=== PATIENT | male | born 1970 | race Caucasian/White ===

== ENCOUNTER 2020-05-30 16:28 | Emergency (ER) | payer BC, SELFPAY ==
[2020-05-30 16:36] VITALS: BP 167/92; PULSE 90; RESP 18; TEMP 36.4; O2SAT 98
--- NOTE | 2020-05-30 16:49 | ED.GENADULT ---
HPI - General Adult General Chief complaint: Wound/Laceration Stated complaint: Pos spider bite Time Seen by Provider: 05/30/20 16:49 Source: patient Mode of arrival: ambulatory Limitations: no limitations History of Present Illness HPI narrative: 50-year-old male patient presents to the [facility] with complaints of a bite/wound to the left ankle for the last couple of days. Patient denies any pain to the area denies any itching. Patient states it was slightly swollen yesterday but does appear to be better today. Denies any chest pain, shortness of breath denies any fevers. Patient states he has had a brown recluse bite before the past and just wanted to come and get it checked out. Related Data Allergies Allergy/AdvReac Type Severity Reaction Status Date / Time No Known Allergies Allergy Verified 05/30/20 16:38 Review of Systems Review of Systems: Narrative: CONSTITUTIONAL: Denies fever, chills, or sweats. EYES: Denies visual changes, redness, or discharge. ENT: Denies rhinorrhea, congestion, sore throat, or otalgia. CARDIOVASCULAR: Denies chest pain, palpitations, or edema. RESPIRATORY: Denies cough or dyspnea. GASTROINTESTINAL: Denies abdominal pain, nausea, vomiting, or diarrhea. GENITOURINARY: Denies dysuria or hematuria. SKIN: Denies rash or itching. Positive bite to left ankle MUSCULOSKELETAL: Denies back pain, joint pain, or myalgia. NEUROLOGIC: Denies headache, numbness, or weakness. PSYCHIATRIC: Denies anxiety or depression. PMFSH Family History Family History Sibling Depression Family history of multiple sclerosis Father Hypertension Family history of coronary artery disease Mother Hypertension Family history of coronary artery disease Social History Social History Smoking status: Never smoker Alcohol intake: current Gender identity (if verbalized by the patient): Male Comments At the time of my signature I agree with nursing past medical history, surgical, social, and family history. There is no relevant family history pertinent to the presenting complaint. Exam Narrative: Exam Narrative: GENERAL: Well-appearing, well-nourished, and in no acute distress. HEAD: Normocephalic, atraumatic. EYES: PERRLA and EOMI. ENT: Nares clear, no rhinorrhea or epistaxis. Mucous membranes moist. NECK: Supple. No lymphadenopathy CHEST: Clear to auscultation. No respiratory distress. HEART: Regular rate and rhythm. No murmur heard. Normal peripheral pulses. ABDOMEN: Soft, nontender, nondistended, normal active bowel sounds. EXTREMITIES: Normal range of motion. No edema. SKIN: Warm, dry, no rash. Patient has what appears to be 2 fang campo to the inner aspect of the left ankle. Slight redness noted but no warmth. No discharge noted. No obvious swelling noted at this time. No tenderness to the touch. NEURO: No focal deficits. Alert and oriented x3. Course Vital Signs Vital signs: Vital Signs Temperature 36.4 C L 05/30/20 16:36 Pulse Rate 90 05/30/20 16:36 Respiratory Rate 18 05/30/20 16:36 Blood Pressure 167/92 H 05/30/20 16:36 Pulse Oximetry 98 05/30/20 16:36 Temperature 36.4 C L 05/30/20 16:36 Pulse Rate 90 05/30/20 16:36 Respiratory Rate 18 05/30/20 16:36 Blood Pressure 167/92 H 05/30/20 16:36 Pulse Oximetry 98 05/30/20 16:36 Vital signs reviewed. The patient has been informed that they may have pre-hypertension or Hypertension based on a BP reading in the department. I recommend that the patient call the primary care provider listed on their discharge instructions or a physician of their choice this week to arrange follow up for further evaluation of possible pre-hypertension or Hypertension Medical Decision Making Differential Diagnosis Differential Diagnosis: Differential diagnosis: Abscess, cellulitis, hidradenitis, laceration, puncture wound, insect
== END 2020-05-30 16:55 | disposition home or self-care (01) ==
PROVIDERS: Emergency Provider Nurse Practitioner Family
DX: S80.862A Insect bite (nonvenomous), left lower leg, initial encounter (principal); W57.XXXA Bitten or stung by nonvenomous insect and other nonvenomous arthropods, initial encounter
CPT/HCPCS: 99203; G0463

== ENCOUNTER 2021-01-15 16:27 | Emergency (ER) | payer BC, SELFPAY ==
--- NOTE | ~2021-01-15 | XR_ITS ---
EXAMINATION: XR chest 2V DATE: 01/15/2021 17:08 INDICATION: Bilateral leg swelling. TECHNIQUE: Frontal and lateral views of the chest were obtained. COMPARISON: None. FINDINGS: The chest demonstrates clear lungs without pneumonia, pleural effusion, or pneumothorax. Th e heart size is normal. IMPRESSION: 1. No acute cardiopulmonary disease. Reviewed, dictated and finalized at location A. [employer]
[2021-01-15 16:33] VITALS: BP 174/102; PULSE 87; RESP 20; TEMP 36.6; O2SAT 100
--- NOTE | 2021-01-15 16:41 | ED.GENADULT ---
HPI - General Adult General Chief complaint: Extremity Problem,Nontraumatic Stated complaint: BILAT FEET SWELLING Time Seen by Provider: 01/15/21 16:41 Source: patient and RN notes reviewed Mode of arrival: ambulatory Limitations: no limitations History of Present Illness HPI narrative: 50-year-old male presents with complaints of swelling to bilateral lower extremities for the past 5 months. Nicole reports he has been having swelling to BLEs since July, increasing over the last 24 hours due to increase sitting and up on feet. No treatment. Denies poor circulation, chronic BLE swelling, DVT, PE, or long car rides. No known injury. No radiation of pain. No numbness or tingling, drainage, or bleeding. No loss of mobility. Exacerbating factor consist of prolong standing and dangling legs. Denies fatigue, numbness or tingling in the extremities, dizziness, headache, blurred vision, or other vision disturbance. History of elevated blood readings. Denies URI symptoms. Denies dysuria or hematuria. Denies polyuria, polydipsia, nocturia, recent weight loss, rapid heart beat, dizziness, lightheadedness, and alter mental status. Denies fever or chills. Denies nausea, vomiting, and abdominal pain. Tolerating po intake well. Denies chest pain or shortness of breath. Remains active. The patient reports he have not been diagnosed with COVID-19. The patient reports he is not waiting for the results of a COVID-19 lab test. The patient reports he do not have chills, or weakness. The patient reports he do not have a new or worsening cough or shortness of breath. The patient reports he do not have any rhinorrhea, congestion, loss of taste or smell, sore throat, and diarrhea. Denies recent traveling. Denies concerns for COVID-19 or exposures been home with limited outdoor exposure except for essential household needs, work, and return home. At this time, patient is not suspected of having COVID-19. Some parts of this dictation were generated by voice recognition software and may contain typographical and/or grammatical inaccuracies. Related Data Allergies Allergy/AdvReac Type Severity Reaction Status Date / Time No Known Allergies Allergy Verified 01/15/21 16:31 Review of Systems Review of Systems: Narrative: CONSTITUTIONAL: Denies fever, chills, sweats. EYES: Denies visual changes, redness, discharge. ENT: Denies rhinorrhea, congestion, sore throat, otalgia. CARDIOVASCULAR: Denies chest pain, palpitations. Complains of swelling to BLEs. RESPIRATORY: Denies dyspnea, wheezing, cough. GASTROINTESTINAL: Denies abdominal pain, nausea, vomiting, or diarrhea. GENITOURINARY: Denies dysuria, hematuria, abnormal discharge. SKIN: Denies rash or itching. MUSCULOSKELETAL: Denies acute back pain, joint pain, or myalgia. NEUROLOGIC: Denies numbness or focal weakness. PSYCHIATRIC: Denies anxiety or depression. All systems reviewed & are unremarkable except as noted in HPI and below. [facility] Past Medical History Medical History (Updated 01/16/21 @ 00:01 by Seth Bai) Appendicitis Elevated blood pressure reading Obese Surgical History Surgical History (Updated 01/15/21 @ 17:06 by RENATO Huerta) Hx of appendectomy Family History Family History (Updated 01/15/21 @ 17:08 by RENATO Huerta) Sibling Depression Family history of multiple sclerosis Father Hypertension Family history of coronary artery disease Mother Hypertension Family history of coronary artery disease COPD (chronic obstructive pulmonary disease) Social History Social History (Updated 01/15/21 @ 17:08 by RENATO Huerta) Smoking status: Never smoker Tobacco type: cigarettes Second hand tobacco smoke exposure: No Alcohol intake: current Substance use: never Living arrangements: with family Occupation/Education: occupation Gender identity (if verbalized by the patient): Male Sexual Orientation (if Verbali
--- NOTE | 2021-01-15 16:59 | ECG_ITS ---
Measurements Intervals [place] Rate: 82 P: 43 ID: [id number] QRS: -25 QRSD: 112 T: 28 QT: 380 QTc: 445 Interpretive Statements SINUS RHYTHM INTRAVENTRICULAR CONDUCTION DELAY BORDERLINE ECG Electronically Signed On 01-16-2021 7:17:24 [employer]PAR[employer] by Marcos Soriano D.O.
[2021-01-15 17:05] VITALS: BP 134/76
== END 2021-01-15 17:35 | disposition home or self-care (01) ==
PROVIDERS: Emergency Provider Nurse Practitioner Family; PCP Family Medicine
DX: M79.89 Other specified soft tissue disorders (principal); R60.0 Localized edema; R03.0 Elevated blood-pressure reading, without diagnosis of hypertension; E66.9 Obesity, unspecified; Z68.41 Body mass index [BMI] 40.0-44.9, adult
CPT/HCPCS: 71046; 93005; 99213; G0463

== ENCOUNTER 2023-03-11 19:37 | Emergency (ER) | payer BC, SELFPAY ==
--- NOTE | 2023-03-11 19:42 | ED.URI ---
HPI - URI/Sore Throat General Chief Complaint: Upper Respiratory Infection Stated Complaint: cough Time Seen by Provider: 03/11/23 19:42 Source: patient and RN notes reviewed Mode of arrival: ambulatory Limitations: no limitations History of Present Illness HPI Narrative: 53-year-old male presents with concern for cough for 5 weeks. Reports symptoms started when he was at a swim meet and felt like the air made him cough. He reports since then he has had a persistent dry cough. He denies fever, aches, chills, sweats. Denies shortness of breath. He denies rhinorrhea or nasal congestion. He has not taken any medications for his symptoms. He reports the cough does not keep him awake at night, however he coughs persistently during the day MD elicited complaint: cough Related Data Allergies Allergy/AdvReac Type Severity Reaction Status Date / Time No Known Allergies Allergy Verified 03/11/23 19:42 Review of Systems Review of Systems: CONSTITUTIONAL: Denies malaise, chills, sweats, or fever. EYES: Denies visual changes, redness, or discharge. ENT: Denies rhinorrhea, congestion, sinus pain, otalgia and sore throat. CARDIOVASCULAR: Denies chest pain, palpitations, or edema. RESPIRATORY: Reports cough. Denies dyspnea. GASTROINTESTINAL: Denies abdominal pain, nausea, vomiting, diarrhea SKIN: Denies rash or itching. MUSCULOSKELETAL: Denies myalgia. NEUROLOGIC: Denies headache. All systems reviewed & are unremarkable except as noted in HPI and below PMFSH Past Medical History Medical History (Updated 03/11/23 @ 19:49 by Kendal Bose NP) Appendicitis Elevated blood pressure reading Obese Surgical History Surgical History (Updated 01/15/21 @ 17:06 by RENATO Huerta) Hx of appendectomy Family History Family History (Updated 01/15/21 @ 17:08 by RENATO Huerta) Sibling Depression Family history of multiple sclerosis Father Hypertension Family history of coronary artery disease Mother Hypertension Family history of coronary artery disease COPD (chronic obstructive pulmonary disease) Social History Social History (Updated 01/15/21 @ 17:08 by RENATO Huerta) Smoking status: Never smoker Tobacco type: cigarettes Second hand tobacco smoke exposure: No Alcohol intake: current Substance use: never Living arrangements: with family Occupation/Education: occupation Gender identity (if verbalized by the patient): Male Sexual Orientation (if Verbalized by the Patient): Straight or Heterosexual Comments At time of signature, agree with nursing past medical, surgical, social and family history. There is no relevant family history pertinent to the presenting complaint Exam Narrative: GENERAL: Well-appearing, well-nourished, and in no acute distress. HEAD: Normocephalic EYES: PERRLA, conjunctivae clear ENT: Nares clear, turbinates edematous and erythematous, clear discharge. Mucous membranes moist. TM pearly raya with sharp light reflex bilaterally; no tragal tenderness. Oropharynx not erythematous without lesions. Tonsils not enlarged and without exudate, no drooling, no hoarseness, no trismus, uvula midline. NECK: Supple. No lymphadenopathy CHEST: Clear to auscultation, breath sounds equal. No wheezing, rhonchi, rales, or stridor. No respiratory distress, speaks in full sentences. HEART: Regular rate and rhythm. No murmur heard. SKIN: Warm, dry, no rash. NEURO: Alert and oriented x3. PSYCH: Normal mood and affect Course Course Emergency Course: Patient is aware of diagnosis, understands and agrees to treatment plan. Anticipatory guidance given. Patient agrees to follow-up as directed and is aware of reasons to seek care at the emergency department. Portions of this record may have been created with voice recognition software Level of Care: Express Care Visit Vital Signs Vital signs: Reviewed. MDM - URI/Sore Throat MDM Narrative Medical decision making narr
[2023-03-11 19:44] VITALS: BP 174/94; PULSE 91; RESP 16; TEMP 36.8; O2SAT 98
== END 2023-03-11 19:52 | disposition home or self-care (01) ==
PROVIDERS: Emergency Provider Nurse Practitioner
DX: J40 Bronchitis, not specified as acute or chronic (principal); E66.9 Obesity, unspecified; Z68.41 Body mass index [BMI] 40.0-44.9, adult
CPT/HCPCS: 99213; G0463

== ENCOUNTER 2024-05-12 12:51 | Outpatient (CLI) | payer BC, SELFPAY ==
--- NOTE | ~2024-05-12 | XR_ITS ---
EXAMINATION: XR knee LT min 4V, XR knee RT min 4V DATE: 05/12/2024 13:06 INDICATION: Chronic bilateral knee pain TECHNIQUE: 1. Weight bearing anteroposterior and Gannon, sunrise, and flexed lateral views of the right knee were obtained. 2. Weight bearing anteroposterior and Gannon, sunrise, and flexed lateral views of the left knee w ere obtained. COMPARISON: None. FINDINGS: Alignment is normal. No fracture. There is moderate joint space at the patellofemoral compartment of the right knee and mild to moderate joint space narrowing at the patellofemoral compartment of the l eft knee, both with small marginal osteophytes. Joint spaces in the medial and lateral compartments a re normal. No joint effusion. Soft tissues are unremarkable. IMPRESSION: 1. Bilateral patellofemoral osteoarthritis with moderate joint space narrowing on the right and mild to moderate on the left. Reviewed, dictated and finalized at location B. IMPRESSION: 1. Bilateral patellofemoral osteoarthritis with moderate joint space narrowing on the right and mild to moderate on the left.
== END 2024-05-12 12:52 ==
LOC: GOSHIMG 12:52
PROVIDERS: PCP Emergency Medicine; Visit Provider Emergency Medicine
DX: M17.0 Bilateral primary osteoarthritis of knee (principal)
CPT/HCPCS: 73564

== ENCOUNTER 2024-06-25 10:10 | Outpatient (CLI) | payer BC, SELFPAY ==
--- NOTE | ~2024-06-25 | MR_ITS ---
MRI of the left knee Clinical history: Medial meniscus tear Technique: Coronal proton density and proton density-weighted images, sagittal proton-density and T2 fat-sat images, and axial proton-density fat-saturated images were acquired. Findings: Anterior and posterior cruciate ligaments are intact. Medial collateral ligament and the la teral collateral ligament complex are intact. Popliteus tendon is intact. No lateral meniscal tear seen. There is a horizontal/oblique tear of the posterior horn and body of t he medial meniscus. There is an associated elongated, crescentic parameniscal cyst medially measuring 3.3 cm in craniocaudal extent, 3.3 cm in AP diameter, and 0.6 cm in transverse dimension. There is mild chondromalacia the femoral trochlea. Remaining articular cartilage is well preserved. B one marrow signals are unremarkable. Extensor mechanism is intact. No joint effusion or Jones's cyst. Impression: Horizontal/oblique tear of the posterior horn and body medial meniscus, with 3.3 x 3.3 x 0.6 cm eccen tric medial para-meniscal cyst. Reviewed, dictated and finalized at location . Impression: Horizontal/oblique tear of the posterior horn and body medial meniscus, with 3. 3 x 3.3 x 0.6 cm eccentric medial para-meniscal cyst.
== END 2024-06-25 10:11 ==
LOC: GOSHIMG 10:11
PROVIDERS: PCP Emergency Medicine; Visit Provider Orthopaedic Surgery
DX: S83.242A Other tear of medial meniscus, current injury, left knee, initial encounter (principal); X58.XXXA Exposure to other specified factors, initial encounter
CPT/HCPCS: 73721

== ENCOUNTER 2024-07-03 08:32 | Outpatient (CLI) | payer BC, SELFPAY ==
--- NOTE | 2024-07-03 08:30 | ECG_ITS ---
Test Date: 2024-07-03 09:03:54 Measurements Intervals [place] Rate: 75 P: 26 ID: [id number] QRS: -9 QRSD: 116 T: 17 QT: 373 QTc: 418 Interpretive Statements SINUS RHYTHM NORMAL ELECTROCARDIOGRAM No previous ECG available for comparison Electronically Signed On 07-03-2024 15:05:49 CDT by Michael Beckwith M.D.
== END 2024-07-03 08:33 | disposition home or self-care (01) ==
PROVIDERS: PCP Emergency Medicine; Visit Provider Orthopaedic Surgery
DX: Z01.810 Encounter for preprocedural cardiovascular examination (principal); S83.242A Other tear of medial meniscus, current injury, left knee, initial encounter
CPT/HCPCS: 93005

== ENCOUNTER 2024-07-06 01:27 | Day surgery (SDC) | payer BC, SELFPAY ==
[2024-07-01 15:08] VITALS: BMI 41.5
--- NOTE | 2024-07-01 15:21 | SUR.PREOP ---
Report to the Outpatient Waiting Room, entrance under the green pavilion located off [facility], at time 1300 on date 07/06/24. Planned Procedure Time: 1500. Time changes happen often and if your time is changed the preop area will call you the afternoon before. - You and your visitor will be asked to self-screen and do not enter if you have any COVID symptoms. - A mask is optional within the hospital at this time. Patients may have clear liquids (water, carbonated beverages, clear teas, apple juice) until 3 hours prior to surgery with a maximum of 20 ounces. - No food from midnight until time of surgery Take the following medications with a SIP of water the morning of surgery: N/A DO NOT STOP ANY OF YOUR OTHER PRESCRIPTION MEDICATIONS PRIOR TO SURGERY ?EXCEPT THE FOLLOWING Medications to discontinue per physician TIRZEPATIDE Date take last dose PT STATED THAT HIS LAST DOSE WAS June AND WONT TAKE AGAIN UNTIL AFTER PROCEDURE Please no make-up, nail kazakh, hairspray, perfume, deodorant, or body powder the day of surgery. No jewelry (including any body piercings) or valuables the day of surgery, leave them at home. Please take a shower or bath the night before, or the morning of, surgery with an antibacterial soap. Wear comfortable, loose fitting clothing. Children are encouraged to wear pajamas. - Jewelry must be removed prior to entering the operating room. Rings and piercings that are not removed may be cut off. - The hospital will not accept responsibility for valuables. - Please leave all valuables, including medications, at home the day of surgery. If you are going home after surgery, a licensed driver recruiter must drive you home. - NO public transportation without another adult if you receive anesthesia. - We recommend that an adult stay with you for 24 hours following discharge. - We also recommend that you do not drive, make important decision, drink alcoholic beverages, or take any drugs that were not prescribed by your health care provider for at least 24 hours after your discharge time. Follow any additional instructions given to you from your surgeon. If you or anyone in your household have experienced Covid symptoms in the past week, please notify your surgeon or the nurse liaison at the phone number below for possible testing. Telephone instructions given to ANTOLIN MERRILL and asked if any additional questions and then verbalized understanding. Patient advised to call surgeon office or pre surgery nurse liaison [phone] if any additional questions.
[2024-07-06] VITALS (8 sets, daily range): BP systolic 105–134; BP diastolic 70–78; PULSE 59–78; RESP 12–18; TEMP 36–36.2; O2SAT 97–100
[2024-07-06] MEDS: ACETAMINOPHEN 500 MG TABLET 1000 MG PO (13:15)
[2024-07-06] MEDS: LACTATED RINGERS 1,000 ML 30 ML IV CONT (13:30)
--- NOTE | 2024-07-06 13:54 | WPDANESEPPF ---
Anes - Initial Pre Proc Eval Procedure: Operation Date: 07/06/24 15:00 Proposed Procedures p Left Knee Arthroscopy, Partial Medial Meniscectomy - Julio Hunter MD Date/Time: 07/06/24 13:54 Surgeon: Julio Hunter MD Pre Op Diagnosis: left knee medial meniscus tear Patient Data Age: 54 Gender: M Height: 1.85 m Weight: 145.5 kg Last Vital Signs Temp 36.0 C L 07/06/24 13:16 Pulse 78 07/06/24 13:16 Resp 16 07/06/24 13:16 BP 134/77 07/06/24 13:16 Pulse Ox 98 07/06/24 13:16 O2 Del Method Room Air 07/06/24 13:16 Allergies Allergy/AdvReac Type Severity Reaction Status Date / Time semaglutide [From [facility]] AdvReac Severe Vomiting Verified 07/06/24 13:06 Home Medications Medication Instructions Recorded Confirmed Type lisinopril 10 mg tablet 10 mg PO DAILY #90 tabs 10/28/23 07/01/24 Rx tirzepatide (weight loss) 5 mg/0.5 5 mg (0.5 mL) subcut WEEKLY #2 mL 06/12/24 07/01/24 Rx mL subcutaneous pen injector (Zepbound) Patient hx anesthesia problems: none Family hx anesthesia problems: none Results Review: All pre-operative results and documents have been reviewed as part of the pre-operative evaluation. [facility] Past Medical History Medical History (Updated 07/06/24 @ 13:55 by Eyad Johnson DO) Appendicitis Elevated blood pressure reading Hyperlipidemia Hypertension Obese KATARZYNA (obstructive sleep apnea) Surgical History Surgical History Hx of appendectomy Family History Family History Sibling Depression Family history of multiple sclerosis Father Hypertension Family history of coronary artery disease Mother Hypertension Family history of coronary artery disease COPD (chronic obstructive pulmonary disease) Social History Social History (Updated 06/17/24 @ 09:17 by Charo Fontaine CMA) Smoking status: Never smoker Tobacco type: cigarettes Second hand tobacco smoke exposure: No Alcohol intake: current Substance use: never Do You Feel Safe in your Home?: Yes Lack of Transportation: No Lack of Food: Never True Current Housing: I Have Housing Concerned About Future Housing: No Difficulty Paying Gas/Electric Bills: No Difficulty Paying for Meds: No Currently Unemployed: No Education: Bachelor's Degree Difficulty w/ Childcare or Family Care: No Living arrangements: with family Occupation/Education: occupation Gender identity (if verbalized by the patient): Male Sexual Orientation (if Verbalized by the Patient): Straight or Heterosexual Spiritual care concerns: No Anes - Eval Final PreProcedure Day of Procedure 07/06/24 13:54 Patient weight: morbidly obese Heart: regular rate and rhythm Lungs: clear to auscultation Airway: Mallampati scale class II Neurological: alert and oriented Last oral intake: >/= 8 hours ASA classification: III Emergent: no Anesthetic plan: proceed Anesthesia type and monitoring: general LMA and standard monitoring Results Review: All pre-operative results and documents have been reviewed as part of the pre-operative evaluation. Informed Consent: The patient's anesthetic plan and its attendant risks and benefits were discussed with the patient/family/POA. Questions were solicited and answers provided to the satisfaction of the patient/family/POA.
[2024-07-06] MEDS: KETOROLAC 15 MG/ML VIAL (*BKC) IV PUSH (14:17)
--- NOTE | 2024-07-06 14:24 | WPDHPUPDATE1 ---
History and Physical Update Update Date/Time: 07/06/24 14:24 History and Physical has been reviewed, including an updated exam of the patient. There are NO changes in the patient's condition. Risks, benefits, and alternatives have been discussed and questions answered. Patient agrees to proceed with procedure.
[2024-07-06] MEDS: ceFAZolin 3 GM/D5W 100 ML 100 ML IVPB (14:31)
[2024-07-06] MEDS: BUPIVACAINE/EPINEPHRINE 0.5% 50 ML VIAL 20 ML INFILTRATE (15:18)
--- NOTE | 2024-07-06 16:09 | W.PM.PROC2 ---
Procedure Note - Detailed Date of Procedure 07/06/24 Pre-op Diagnosis Left knee medial meniscus tear Post-op Diagnosis Same Procedure Performed Arthroscopic partial medial meniscectomy, left knee. Surgeon Julio Hunter MD Anesthesia General Findings Extensive medial tear posterior horn. Subtotal meniscectomy. Some frayed tissue anteriorly also debrided. The lateral compartment appeared benign but the patellofemoral joint showed significant early arthritis. Medial femur chondromalacia grade 2/3, medial tibia grade 1. Lateral femur chondromalacia grade 0, lateral tibia grade 0. Patellar grade 2, trochlea grade 3. Description of Procedure The patient was identified and the surgical site confirmed and signed in the preoperative holding area. Antibiotics were started per protocol, and the patient was brought to the operative room and transferred to the OR table. A general anesthetic was administered. Supine position with the operative lower extremity position in the leg fr[place] after placement of a well padded tourniquet. The leg support was lowered and the contralateral limb was supported with a soft bolster. The knee was prepped and draped in the usual sterile fashion. A time-out was performed. The portal sites were marked and infiltrated with 0.5% Marcaine 20 mL. The limb was exsanguinated and the tourniquet inflated to 300 mL Hg. Standard inferolateral and inferomedial portals were established. Inflow was obtained with the saline pump. The camera was introduced. Diagnostic inspection of the joint was accomplished. The meniscus was debrided with the arthroscopic shaver and punches until stable. The radiofrequency probe was also used for further d?bridement. The arthroscopic instruments were removed. The tourniquet released and wounds closed with subcutaneous 4-0 Monocryl absorbable suture. Steri strips and a sterile dressing were applied. A light elastic wrap was placed. The patient was extubated and brought to the recovery room in stable condition. Estimated Blood Loss 5 Drains No Complications No immediate complications Condition Stable Disposition PACU [facility] Billing Surgery - Charge Forward: Surgery Billing
== END 2024-07-06 17:27 | disposition home or self-care (01) ==
PROVIDERS: PCP Emergency Medicine; Visit Provider Orthopaedic Surgery
PROC: (CPT 29870; principal; 2024-07-06 15:00)
DX: S83.242A Other tear of medial meniscus, current injury, left knee, initial encounter (principal); M17.0 Bilateral primary osteoarthritis of knee; I10 Essential (primary) hypertension; E78.5 Hyperlipidemia, unspecified; G47.33 Obstructive sleep apnea (adult) (pediatric); E66.01 Morbid (severe) obesity due to excess calories; Z68.41 Body mass index [BMI] 40.0-44.9, adult; Z79.85 Long-term (current) use of injectable non-insulin antidiabetic drugs; Z98.890 Other specified postprocedural states; Z82.49 Family history of ischemic heart disease and other diseases of the circulatory system; W10.9XXA Fall (on) (from) unspecified stairs and steps, initial encounter
CPT/HCPCS: 29881; A9270; J0690; J1100; J1885; J2250; J2405; J2704; J3010; J7120

== ENCOUNTER 2024-08-04 02:35 | Day surgery (SDC) | payer BC, SELFPAY ==
[2024-07-13 10:16] VITALS: BMI 42.3
[2024-08-04 08:55] VITALS: BP 136/94; PULSE 85; RESP 16; TEMP 36.7; O2SAT 98; BMI 41.5
[2024-08-04] MEDS: LACTATED RINGERS 1,000 ML 150 ML IV CONT (09:14)
--- NOTE | 2024-08-04 09:49 | PM.IMHP ---
H&P: HPI History of Present Illness Date/Time: 08/04/24 09:49 Chief Complaint: Screening for colorectal cancer Narrative: this is a 54-year-old man who presents for colonoscopy. He has never had a colonoscopy before. He denies any hematochezia or melena. He does occasionally have some bright red blood after bowel movements that he thinks is related to hemorrhoids. He denies family history of colon cancer. Review of Systems Review of Systems: All systems reviewed & are unremarkable except as noted in HPI and below Constitutional: Constitutional: Denies chills, Denies fever(s), Denies headache(s) and Denies weight loss Eyes: Eyes: Denies change in vision ENT: Denies dizziness, Denies headache(s), Denies neck mass and Denies throat swelling Cardiovascular: Cardiovascular: Denies chest pain, Denies lightheadedness and Denies dyspnea Respiratory: Respiratory: Denies cough, Denies dyspnea and Denies wheezing Gastrointestinal: Gastrointestinal: Denies abdominal pain, Denies change in bowel habits, Denies nausea and Denies vomiting Genitourinary: Genitourinary: Denies hematuria and Denies dysuria Musculoskeletal: Musculoskeletal: Reports as per HPI Integumentary/Breasts: Skin/Breast: Reports as per HPI Neurologic: Denies dizziness and Denies headache(s) Allergic/Immunologic: Allergic/Immunologic: Denies throat swelling and Denies wheezing PMFSH Past Medical History Medical History Appendicitis Elevated blood pressure reading Hyperlipidemia Hypertension Obese KATARZYNA (obstructive sleep apnea) Surgical History Surgical History Hx of appendectomy Family History Family History Sibling Depression Family history of multiple sclerosis Father Hypertension Family history of coronary artery disease Mother Hypertension Family history of coronary artery disease COPD (chronic obstructive pulmonary disease) Social History Social History Smoking status: Never smoker Second hand tobacco smoke exposure: No Alcohol intake: never Substance use: never Substance use type: does not use Do You Feel Safe in your Home?: Yes Lack of Transportation: No Lack of Food: Never True Current Housing: I Have Housing Concerned About Future Housing: No Difficulty Paying Gas/Electric Bills: No Difficulty Paying for Meds: No Currently Unemployed: No Education: Bachelor's Degree Difficulty w/ Childcare or Family Care: No Living arrangements: with family Occupation/Education: occupation Gender identity (if verbalized by the patient): Male Sexual Orientation (if Verbalized by the Patient): Straight or Heterosexual Spiritual care concerns: No Meds Home Medications and Allergies Home Medications Medication Instructions Recorded Confirmed Type lisinopril 10 mg tablet 10 mg PO DAILY #90 tabs 10/28/23 08/04/24 Rx tirzepatide (weight loss) 5 mg/0.5 5 mg (0.5 mL) subcut WEEKLY #2 mL 06/12/24 08/04/24 Rx mL subcutaneous pen injector ([employer]) hydrocodone 5 mg-acetaminophen 325 1 - 2 tablet PO Q4-6H PRN pain #14 07/22/24 08/04/24 Rx mg tablet tabs Allergies Allergy/AdvReac Type Severity Reaction Status Date / Time semaglutide [From Gilbertmelissa] AdvReac Severe Vomiting Verified 08/04/24 09:05 Vital Signs Vital Signs - 24 hr 08/04/24 08:55 Temperature 98.1 F Pulse Rate 85 Respiratory Rate 16 Blood Pressure 136/94 H Pulse Oximetry 98 Oxygen Delivery Room Air Exam Const: General: no acute distress and alert Orientation/consciousness: patient oriented x3 HENMT: Head: normocephalic and atraumatic Ears: hearing grossly normal bilaterally Face/Nose/Sinus: Normal nares present Mouth: Yes Normal oral and palatal mucosa present Eyes: Periorbit
--- NOTE | 2024-08-04 09:50 | P.PNAN_ITS ---
Anes - Initial Pre Proc Eval Procedure: Operation Date: 08/04/24 09:30 Proposed Procedures p Screening Colonoscopy - Vitor Jackson DO Date/Time: 08/04/24 09:50 Surgeon: Vitor Jackson DO Pre Op Diagnosis: Neoplasm screening Patient Data Age: 54 Gender: M Height: 1.85 m Weight: 143 kg Last Vital Signs Temp 36.7 C 08/04/24 08:55 Pulse 85 08/04/24 08:55 Resp 16 08/04/24 08:55 BP 136/94 H 08/04/24 08:55 Pulse Ox 98 08/04/24 08:55 O2 Del Method Room Air 08/04/24 08:55 Allergies Allergy/AdvReac Type Severity Reaction Status Date / Time semaglutide [From Nader] AdvReac Severe Vomiting Verified 08/04/24 09:05 Home Medications Medication Instructions Recorded Confirmed Type lisinopril 10 mg tablet 10 mg PO DAILY #90 tabs 10/28/23 08/04/24 Rx tirzepatide (weight loss) 5 mg/0.5 5 mg (0.5 mL) subcut WEEKLY #2 mL 06/12/24 08/04/24 Rx mL subcutaneous pen injector (Zepbound) hydrocodone 5 mg-acetaminophen 325 1 - 2 tablet PO Q4-6H PRN pain #14 07/22/24 08/04/24 Rx mg tablet tabs Patient hx anesthesia problems: none Family hx anesthesia problems: none Results Review: All pre-operative results and documents have been reviewed as part of the pre- operative evaluation. COUNT INCLUDES [facility] Past Medical History Medical History Appendicitis Elevated blood pressure reading Hyperlipidemia Hypertension Obese KATARZYNA (obstructive sleep apnea) Surgical History Surgical History Hx of appendectomy Family History Family History Sibling Depression Family history of multiple sclerosis Father Hypertension Family history of coronary artery disease Mother Hypertension Family history of coronary artery disease COPD (chronic obstructive pulmonary disease) Social History Social History Smoking status: Never smoker Second hand tobacco smoke exposure: No Alcohol intake: never Substance use: never Substance use type: does not use Do You Feel Safe in your Home?: Yes Lack of Transportation: No Lack of Food: Never True Current Housing: I Have Housing Concerned About Future Housing: No Difficulty Paying Gas/Electric Bills: No Difficulty Paying for Meds: No Currently Unemployed: No Education: Bachelor's Degree Difficulty w/ Childcare or Family Care: No Living arrangements: with family Occupation/Education: occupation Gender identity (if verbalized by the patient): Male Sexual Orientation (if Verbalized by the Patient): Straight or Heterosexual Spiritual care concerns: No Comments MED HX: KATARZYNA, HTN, HLD, M.OBESE Anes - Eval Final PreProcedure Day of Procedure 08/04/24 09:50 Results Review: All pre-operative results and documents have been reviewed as part of the pre- operative evaluation. Informed Consent: The patient's anesthetic plan and its attendant risks and benefits were discussed with the patient/family/POA. Questions were solicited and answers provided to the satisfaction of the patient/famil
[2024-08-04 10:28] VITALS: BP 109/73; PULSE 70; RESP 17; O2SAT 96
[2024-08-04 10:38] VITALS: BP 106/67; PULSE 68; RESP 24; O2SAT 96
[2024-08-04 10:48] VITALS: BP 112/71; PULSE 63; RESP 19; O2SAT 97
== END 2024-08-04 11:00 | disposition home or self-care (01) ==
PROVIDERS: PCP Emergency Medicine; Visit Provider Surgery
PROC: 0DJD8ZZ Inspection of Lower Intestinal Tract, Via Natural or Artificial Opening Endoscopic (ICD-10-PCS; CPT 45378; principal; 2024-08-04 09:30)
DX: Z12.11 Encounter for screening for malignant neoplasm of colon (principal); D12.5 Benign neoplasm of sigmoid colon; I10 Essential (primary) hypertension; E78.5 Hyperlipidemia, unspecified; G47.33 Obstructive sleep apnea (adult) (pediatric); E66.01 Morbid (severe) obesity due to excess calories; Z68.41 Body mass index [BMI] 40.0-44.9, adult; Z79.85 Long-term (current) use of injectable non-insulin antidiabetic drugs
CPT/HCPCS: 45385; 88305; J2001; J2704; J7120